=== PATIENT | female | born 1960 | race Two or more races ===

== ENCOUNTER → 2021-11-07 | Outpatient (CLI) | payer OTHER ==
[~2021-11-07] MED LIST: ALBUTEROL SULF 2.5 MG/0.5ML(0.5%) NEB SOLN ONE
== END | disposition home or self-care (01) ==
LOC: RT 07:48
PROVIDERS: ATTEND Internal Medicine Pulmonary Disease
DX: R06.00 Dyspnea, unspecified (principal); J45.30 Mild persistent asthma, uncomplicated; R05.9 Cough, unspecified
CPT/HCPCS: 94060; 94727; 94729

== ENCOUNTER 2022-07-22 11:30 | Day surgery (SDC) | payer OTHER ==
[~2022-07-22] VITALS: Ht 157.5 cm; Wt 93.4 kg
[~2022-07-22 11:30] MED LIST changes: +ALBUAER3 IN; -ALBUTEROL SULF 2.5 MG/0.5ML(0.5%) NEB SOLN ONE; +ATOR40TA52 PO; +BACL20TA PO; +ESTR1TAB5 PO; +FLUT1AER7 IN; +LEV50T PO; +LISI20TA56 PO; +MEDR2.5T5 PO; +MELO-335 PO; +[UNRECOGNIZED DRUG - CODE] SC
[2022-07-22] MEDS ORDERED: ceFAZolin 1GM/50ML 100 ML IV ONE (11:58)
[2022-07-22] MEDS ORDERED: METOCLOPRAMIDE HCL 5MG/ml INJ 2ml VIAL IV PRN (13:15)
[2022-07-22] MEDS ORDERED: HYDROmorphone HCL 2 MG/ML VL/or syr IV PRN ×3 (13:15→15:15)
[2022-07-22] MEDS ORDERED: MORPHINE SULFATE INJ 2 MG/ml SYRG IV PRN (13:15)
[2022-07-22] MEDS ORDERED: EPINEPHrine HCL 1 MG/1 ML AMP ONE (13:20)
[2022-07-22] MEDS ORDERED: BUPIVACAINE 0.25% INJ 50ML VIAL ONE (13:20)
[2022-07-22] MEDS ORDERED: MEPERIDINE HCL (50 MG/ML) 1 ML VIAL ONE (13:27)
[2022-07-22] MEDS ORDERED: MIDAZOLAM HCL 2MG/2ML 2ml VIAL (1mg/ml) ONE (13:27)
[2022-07-22] MEDS ORDERED: fentaNYL CITRATE 100 MCG/2 ML VL ONE (13:27)
[2022-07-22] MEDS ORDERED: NEOSTIGMINE 1 MG/ML INJ (10mg/10ML VIAL) ONE (13:28)
[2022-07-22] MEDS ORDERED: ONDANSETRON HCL 4 MG/2 ML VIAL ONE (13:28)
[2022-07-22] MEDS ORDERED: SODIUM CHLORIDE LOCK 10 ML ONE (13:28)
[2022-07-22] MEDS ORDERED: GLYCOPYRROLATE 0.2 MG/ML 1ML VIAL ONE (13:28)
[2022-07-22] MEDS ORDERED: SODIUM CHLORIDE LOCK 20 ML ONE (13:31)
[2022-07-22] MEDS ORDERED: LIDOCAINE 2% JELLY 11ml (GLYDO) ONE (13:35)
[2022-07-22] MEDS ORDERED: ePHEDrine SULFATE 50 MG/ML AMP IV PRN (15:15)
[2022-07-22] MEDS ORDERED: LABETALOL HCL 5 MG/ML 4ML SYRINGE IV PRN (15:15)
[2022-07-22] MEDS ORDERED: MORPHINE SULFATE 4 MG/ML SYR/VIAL IV PRN (15:15)
[2022-07-22] MEDS ORDERED: MIDAZOLAM HCL 2MG/2ML 2ml VIAL (1mg/ml) IV PRN (15:15)
[2022-07-22] MEDS ORDERED: ONDANSETRON HCL 4 MG/2 ML VIAL IV PRN (15:15)
[2022-07-22 16:05] VITALS: BP 162/80
== END 2022-07-22 16:20 | disposition home or self-care (01) ==
LOC: SUR 11:30
PROVIDERS: ATTEND Orthopaedic Surgery
DX: M75.121 Complete rotator cuff tear or rupture of right shoulder, not specified as traumatic (principal); M75.21 Bicipital tendinitis, right shoulder; M19.011 Primary osteoarthritis, right shoulder; M75.41 Impingement syndrome of right shoulder; M89.8X1 Other specified disorders of bone, shoulder; I10 Essential (primary) hypertension; E78.5 Hyperlipidemia, unspecified; J45.909 Unspecified asthma, uncomplicated; E03.9 Hypothyroidism, unspecified; Z79.1 Long term (current) use of non-steroidal anti-inflammatories (NSAID); Z79.890 Hormone replacement therapy; Z79.899 Other long term (current) drug therapy; Z98.890 Other specified postprocedural states
CPT/HCPCS: 29824; 29826; 29827; 29828; C1713; J0171; J0690; J2175; J2250; J2405; J3010; A4565; J3490